=== PATIENT | female | born 1975 | race Caucasian/White ===

== ENCOUNTER → 2020-09-20 | Outpatient (CLI) | payer MEDICARE ==
[~2020-09-20] MED LIST: GABA300C PO; MEDR10TA3 PO; OMEP-110 PO; RIVA20TA PO; SUCR1TAB PO; TRAZ150T62 PO
[2020-09-20 13:19] LABS: CHLORIDE 96 mmol/L (98-107)
[2020-09-20 13:48] LABS: ALANINE AMINOTRANSFERASE 26 U/L (12-78); ALKALINE PHOSPHATASE 56 U/L (45-117); ANION GAP 16 mmol/L (5-15); CALCIUM 9.3 mg/dL (8.5-10.1); TOTAL PROTEIN 8.2 g/dL (6.4-8.2)
== END | disposition home or self-care (01) ==
LOC: STAR 11:31
PROVIDERS: ATTEND Internal Medicine Gastroenterology
DX: Z01.812 Encounter for preprocedural laboratory examination (principal); D12.6 Benign neoplasm of colon, unspecified; Z20.822 Contact with and (suspected) exposure to COVID-19
CPT/HCPCS: 36415; 80053; U0003; U0005

== ENCOUNTER 2020-09-26 07:38 | Day surgery (SDC) | payer MEDICARE ==
[~2020-09-26] VITALS: Ht 167.6 cm; Wt 90.1 kg
[2020-09-26] MEDS ORDERED: CHLORHEXIDINE 15 ML UDC PO ONE (09:30)
[2020-09-26] MEDS ORDERED: LACTATED RINGERS 1,000 ML IV SCH (09:30)
== END 2020-09-26 13:50 | disposition home or self-care (01) ==
LOC: OUT 07:38
PROVIDERS: ATTEND Internal Medicine Gastroenterology
DX: K20.80 Other esophagitis without bleeding (principal); K29.50 Unspecified chronic gastritis without bleeding; K26.9 Duodenal ulcer, unspecified as acute or chronic, without hemorrhage or perforation; F41.9 Anxiety disorder, unspecified; F32.9 Major depressive disorder, single episode, unspecified; K21.9 Gastro-esophageal reflux disease without esophagitis; F17.210 Nicotine dependence, cigarettes, uncomplicated; F12.90 Cannabis use, unspecified, uncomplicated; Z98.890 Other specified postprocedural states; Z90.49 Acquired absence of other specified parts of digestive tract; Z79.899 Other long term (current) drug therapy; Z79.01 Long term (current) use of anticoagulants; Z86.711 Personal history of pulmonary embolism; Z72.89 Other problems related to lifestyle
CPT/HCPCS: 43239; 81025; 88305; J7120